=== PATIENT | male | born 1990 | race Caucasian/White ===

== ENCOUNTER 2022-01-12 16:32 | Outpatient (REF) | payer OTHER, SELFPAY ==
--- NOTE | ~2022-01-12 | XR_ITS ---
EXAMINATION: XR HAND, RIGHT CLINICAL INFORMATION: Pain COMPARISON: None TECHNIQUE: PA, lateral, and oblique views of the right hand. FINDINGS: Bone alignment is normal. No fracture or dislocation is seen. Joint spaces are normal. There may be a small cyst in the third metacarpal head. Soft tissues are unremarkable. XR/XR hand RT min 3V IMPRESSION: Unremarkable exam.
== END 2022-01-12 16:33 | disposition home or self-care (01) ==
LOC: HO.HMGCX 16:32
PROVIDERS: Visit Provider Family Medicine
DX: M79.644 Pain in right finger(s) (principal)
CPT/HCPCS: 73130

== ENCOUNTER 2024-03-23 07:04 | Emergency (ER) | payer BC, SELFPAY ==
--- NOTE | ~2024-03-23 | CT_ITS ---
CT HEAD CTA HEAD AND NECK HISTORY: right sided neck and head pain TECHNIQUE: Serial axial images were obtained on a multidetector CT through the head without the use of intravenous contrast, as per the standard departmental protocol. Multiplanar 2D MPR reformatted images were then obtained. CTA of the head and neck was performed after the administration of intravenous contrast according to the departmental protocol. MIP 3D angiographic rendering was then performed at the scanner. Evaluation for stenosis of the carotid arteries was made based on NASCET criteria, with evaluation of any areas of focal narrowing relative to the distal vessel (using minimal luminal diameter). Measurement of the distal internal carotid artery diameter was used as the denominator for stenosis measurement. Contrast was administered given the patient's clinical history. All CT exams at this location are performed using dose optimization techniques as appropriate to a performed exam including at least one of the following: * Automated exposure control * Adjustment of the mA and/or kV according to patient size (this includes techniques or standardized protocols for targeted exams where dose is matched to indication / reason for exam; i/e/ extremities or head) * Use of iterative reconstructive technique DLP: 2726 mGy-cm COMPARISON: None FINDINGS: CT Head: The ventricles, sulci and cisterns are age-appropriate. There is no mass-effect, midline shift, or space-occupying lesion. There is no acute intracranial hemorrhage or extra-axial fluid collection. There is no acute territorial infarct. The visualized paranasal sinuses are clear. The mastoid air cells are clear. The orbits and soft tissues are unremarkable. There is no displaced calvarial fracture. CTA Head: The intracranial internal carotid arteries are normal in configuration. The anterior and middle cerebral arteries are patent with normal contrast enhancement and branching pattern. There is a normal anterior communicating artery complex. The vertebral and basilar arteries demonstrate normal enhancement without stenosis or occlusion. The posterior cerebral arteries have a normal caliber and branching pattern. The posterior communicating arteries are visualized. There is no evidence of stenosis, occlusion, aneurysm or arteriovenous malformation. CTA Neck: The visualized aortic arch and origins of the major vessels are unremarkable. The right common, internal and external carotid arteries are normal in appearance. There is no evidence of a significant stenosis by NASCET criteria or a dissection. The left common, internal and external carotid arteries are normal in appearance. There is no evidence of a significant stenosis by NASCET criteria or a dissection. The cervical portions of the vertebral arteries demonstrate normal enhancement. There is no evidence of a significant stenosis or a dissection. The visualized soft tissues are unremarkable. The visualized lung is unremarkable. The visualized osseous structures are unremarkable. CT/CT angio head neck IMPRESSION: 1. Normal appearance of the vasculature of the head and neck, without significant stenosis (by NASCET criteria), dissection, or aneurysm. 2. Unremarkable non-contrast head CT. No acute territorial infarct, space-occupying lesion, or intracranial hemorrhage. Electronically signed by: Vero Abreu MD 03/23/2024 03:22 PM [facility]
[2024-03-23 07:07] VITALS: BP 146/81; PULSE 65; RESP 18; TEMP 36.8; O2SAT 98; BMI 36.6
--- NOTE | 2024-03-23 09:30 | ED_ITS ---
HPI - General Adult General Chief complaint: General Medical Stated complaint: Head Pain No Injury Time Seen by Provider: 03/23/24 08:58 Source: patient and RN notes reviewed Mode of arrival: ambulatory Limitations: no limitations History of Present Illness ED Provider: Gisela Rocha PA-C [facility] narrative: This is a 33-year-old male who presents emergency department with complaints of headache and right-sided neck pain for the last week. Patient states that he has had right-sided frontal neck pain, which radiates into his right temporal region. He states that the neck pain started 1st. He states that when he applies pressure to the right side of his neck he feels the pulsating sensation into his head. He states that he also does have a right-sided headache, which has been constant the past week. Denies any head trauma. He denies history of similar symptoms in the past. He states that his sister has been recently diagnosed with a brain tumor. He states that he has had no vision changes, vision loss, chest pain, shortness of breath, congestion, dental pain, sore throat, difficulty swallowing, abdominal pain, nausea, vomiting or diarrhea. He has been taking Aleve without relief. He reports no significant past medical history. He also reports no significant familial history other than the above mentioned of sister having a brain tumor diagnosed in her 30s. No other complaints or concerns at this time. MD complaint: Headache, neck pain Onset (ago): day(s) Radiation: non-radiation Relieving factors: none Exacerbating factors: none Associated symptoms: denies other symptoms Treatments prior to arrival: none Related Data Previous Rx's ?Medication ?Instructions ?Recorded ibuprofen 800 mg tablet 800 mg PO Q8H PRN pain 14 days #42 01/12/22 tabs Allergies Allergy/AdvReac Type Severity Reaction Status Date / Time nickel [Nickel] Allergy Unknown RASH/SWELLI Verified 03/23/24 07:07 NG Review of Systems 2 Review of Systems: Yes all other systems are reviewed and are negative Constitutional: Constitutional: Reports as per [facility] Social History Social History Advance Directives: No Advance Directives Information Provided: Yes Do you have a plan to hurt others: No Plan Physical Exam ED Vital Signs: Vital Signs - 24 hr 03/23/24 07:07 03/23/24 16:28 Temperature 98.2 F 97.1 F Pulse Rate 65 60 Respiratory Rate 18 18 Blood Pressure 146/81 H 116/78 Pulse Oximetry 98 97 Oxygen Delivery Method Room Air Room Air BMI result Body Mass Index 36.6 Const General: cooperative, comfortable and no acute distress Orientation/consciousness: patient oriented x3 Limitations: no limitations HENMT Other: Right-sided anterior lymphadenopathy noted, he does have tenderness to palpation along the right lateral carotid, which patient reports pain radiating up into head with pressure Head: Yes normal to inspection, Yes normocephalic and Yes atraumatic Ears: hearing grossly normal bilaterally General nose exam: Normal external nose present Face and sinus: Yes normal facial exam Mouth: Normal oral and palatal mucosa present, oropharynx normal and moist mucous membranes Throat: Yes posterior oropharynx normal Eyes General: appearance normal, both eyes and all related structures Eyelids: Yes eyelids normal Conjunctivae: conjunctivae normal Sclerae: sclerae normal Pupils: Equal, round and reactive pupils present EOM: EOMs intact bilaterally Neck Neck: Yes normal visual inspection, Yes full ROM and Yes no lymphadenopathy Lymphatic: no lymphadenopathy noted Chest Chest palpation & inspection: normal inspection of the chest Resp Effort & Inspection: normal respiratory effort and able to speak in complete sentences Auscultation: clear to auscultation bilaterally, no crackles, no rales, no rhonchi and no wheezes Cardio Rate: regular rate Rhythm: regular rhythm Heart sounds: S1 normal heart sound present and S2 normal heart sound present GI Inspection: Yes normal to inspection Skin General skin exam: no rashes or lesions noted Trauma: no lacerations or abrasions Wounds: no wounds Neuro General: patient oriented x3 and moves all extremities Cranial nerves: Yes CN's II-XII intact bilaterally and Yes Equal, round and reactive pupils present Cognition (Neuro): normal cognition Gait exam (Neuro): Normal gait present Motor exam (neuro): 5/5 motor strength present throughout Extrem General: Yes normal to inspection Right upper extremity: normal to inspection Left upper extremity: normal to inspection Right lower extremity: normal to inspection Left lower extremity: normal to inspection Course Reevaluation(s) Reevaluation #1: CT scan returns, revealing no acute findings. Discussed findings with patient. Unclear what is causing him to have the symptoms however his workup was reassuring. Discussed strict return precautions. Patient stable for discharge. Medications Administered Discontinued Medications Generic Name Dose Route Start Last Admin Trade Name Freq PRN Reason Stop Dose Admin Iohexol 100 ml 03/23/24 10:31 03/23/24 10:31 Iohexol 350 Mg/Ml 100 Ml Infus..Btl IV 03/23/24 10:32 70 ml ONCE ONE Administration Medical Decision Making Medical Decision Making [facility] Narrative: This is a 33-year-old male, with no known medical problems, who presents emergency department with complaints of neck pain, and headache x 1 week. Patient reports that the pain occurs when he presses onto his right carotid, and radiates up into his right temporal region. His sister has a history of a brain tumor, that was diagnosed in her 30s. No other past personal or familial medical history. He was neurologically intact. No focal deficits on examination. Given pain to right carotid, that radiates up into the right side of his head, will obtain CTA rule out claudication/obstruction, dissection. Other differential diagnosis considerations including viral syndrome, migraine headache, atypical migraine. Differential Diagnosis Differential Diagnoses: The differential diagnosis associated with the presentation includes See above Admission/Observation Consideration of admission/observation: Escalation of care including admission/observation considered Lab Data [facility] Lab Attestation statement: I reviewed the patient's lab results. 03/23/24 09:48 03/23/24 09:48 Labs: Lab Results 03/23/24 03/23/24 Range/Units 09:45 09:48 WBC 8.6 (4.8-10.8) X10*3/uL RBC 4.81 (4.60-5.80) X10*6/uL Hgb 14.4 (14.0-18.0) g/dl Hct 42.7 (42.0-52.0) % MCV 88.8 (80.0-98.0) fL MCH 29.9 (27.0-33.0) pg MCHC 33.7 (31.0-36.0) g/dl RDW 12.6 (11.0-16.0) % Plt Count 185 (160-400) X10*3/uL MPV 10.0 (9.4-12.4) fL Immature Gran % (Auto) 0.8 H (0.0-0.4) % Neut % (Auto) 54.4 (45-73) % Lymph % (Auto) 34.6 (20-40) % Cass % (Auto) 7.4 (2-11) % Eos % (Auto) 2.0 (0-4) % Baso % (Auto) 0.8 (0-2) % Lymph # (Auto) 3.0 (1.2-4.9) X10*3/uL Cass # (Auto) 0.6 (0.1-1.2) X10*3/uL Eos # (Auto) 0.2 (0.0-0.4) X10*3/uL Baso # (Auto) 0.1 (0.0-0.2) X10*3/uL Abs Immat Gran (auto) 0.07 H (0.00-0.03) X10*3/uL Absolute Neuts (auto) 4.7 (2.0-8.3) x10*3/uL Absolute Nucleated RBC 0.000 (0.0-0.012) X10*3/uL Nucleated RBC % (auto) 0.0 (0.0-0.2) /100WBC Sodium 138 (135-145) mmol/L Potassium 3.8 (3.3-5.1) mmol/L Chloride 103 (96-108) mmol/L Carbon Dioxide 29 (22-29) mmol/L Anion Gap 10 L (12-20) BUN 17 H (9-16) mg/dL Creatinine 1.11 (0.5-1.4) mg/dL Estim Creat Clear Calc 150.2 Estimated GFR > 60 Random Glucose 116 H (60-115) mg/dL Calcium 9.5 (8.4-10.2) mg/dL Total Bilirubin 0.4 (0.0-1.0) mg/dL Direct Bilirubin 0.1 (0.0-0.5) mg/dL AST 36 (5-37) U/L ALT 58 H (0-40) U/L Alkaline Phosphatase 66 (39-117) U/L Total Protein 7.6 (6.5-8.0) g/dL Albumin 4.3 (3.5-5.0) g/dL Influenza Type A (PCR) NEGATIVE (Negative) Influenza Type B (PCR) NEGATIVE (Negative) RSV RNA Qual (PCR) NEGATIVE (Negative) SARS-CoV-2 RNA (RT-PCR) NEGATIVE (Negative) S. pyogenes GrpA CHLOE Negative (Negative) Radiology Impression Discussion of test interpretation with radiology: I have reviewed the radiologist's reading. External Record Review External record reviewed: Inpatient record, Office record, Outpatient record, Prior outpatient labs, Prior outpatient radiology, Primary care record and Outside ED record Discharge Plan Discharge Clinical Impression: Headache Patient Disposition: Home, Self-Care Instructions: Acute Headache (DC) Additional Instructions: You were seen in the emergency department due to a headache. Your workup today was reassuring. Your CT scan was normal. It is unclear what is causing you to have the symptoms however your workup today was reassuring. Please drink plenty of fluids get plenty of rest. If any new or worsening symptoms occur including but not limited to worsening pain, dizziness, changes in vision, weakness, please seek emergent care. Prescriptions: No Action ibuprofen 800 mg tablet 800 mg PO Q8H PRN (Reason: pain) 14 Days Qty: 42 0RF Stand Alone Forms: Work/School Release Interventions: ED Discharge Assessment Last Done: 03/23/24 16:28 Discharge Date/Time: 03/23/24 16:29 Print Language: Bengali
[2024-03-23 09:53] LABS: MANUAL DIFF FLAG NO
[2024-03-23 09:57] LABS: Basophils Absolute Auto 0.1 X10*3/uL (0.0-0.2); Basophils Percent Auto 0.8 % (0-2); Eosinophils Absolute Auto 0.2 X10*3/uL (0.0-0.4); Hematocrit 42.7 % (42.0-52.0); Hemoglobin 14.4 g/dl (14.0-18.0); Imm Gran Abs Auto 0.07 X10*3/uL (0.00-0.03); Imm Gran Pct Auto 0.8 % (0.0-0.4); Lymphocytes Percent Auto 34.6 % (20-40); Mean Corpuscular HGB Conc 33.7 g/dl (31.0-36.0); Mean Corpuscular Hemoglobin 29.9 pg (27.0-33.0); Mean Corpuscular Volume 88.8 fL (80.0-98.0); Monocytes Absolute Auto 0.6 X10*3/uL (0.1-1.2); Monocytes Percent Auto 7.4 % (2-11); Neutrophils Absolute Auto 4.7 x10*3/uL (2.0-8.3); Neutrophils Percent Auto 54.4 % (45-73); Platelet Count 185 X10*3/uL (160-400); Red Blood Count 4.81 X10*6/uL (4.60-5.80); Red Cell Distribution Width 12.6 % (11.0-16.0); White Blood Count 8.6 X10*3/uL (4.8-10.8)
[2024-03-23 10:01] LABS: IDNOW Serial# 08D9AD1C; Strep A Nucleic Acid Negative (Negative)
[2024-03-23 10:14] LABS: Alanine Aminotransferase 58 U/L (0-40); Albumin Level 4.3 g/dL (3.5-5.0); Alkaline Phosphatase 66 U/L (39-117); Anion Gap 10 (12-20); Aspartate Amino Transferase 36 U/L (5-37); Bilirubin Direct 0.1 mg/dL (0.0-0.5); Bilirubin Total 0.4 mg/dL (0.0-1.0); Blood Urea Nitrogen 17 mg/dL (9-16); Calcium 9.5 mg/dL (8.4-10.2); Carbon Dioxide 29 mmol/L (22-29); Chloride 103 mmol/L (96-108); Creatinine Clr Calc Pharmacy 150.2; Estimated Glomerular Filt Rate > 60; Glucose Random 116 mg/dL (60-115); Potassium 3.8 mmol/L (3.3-5.1); Sodium 138 mmol/L (135-145); Total Protein 7.6 g/dL (6.5-8.0)
[2024-03-23] MEDS: iohexoL 350 MG/ML 100 ML INFUS..BTL IV (10:31)
[2024-03-23 10:33] LABS: Influenza A PCR NEGATIVE (Negative); Influenza B PCR NEGATIVE (Negative); Resp Syncy Virus RNA Qual PCR NEGATIVE (Negative); SARS COV2 PCR INHOUSE NEGATIVE (Negative)
[2024-03-23 16:28] VITALS: BP 116/78; PULSE 60; RESP 18; TEMP 36.2; O2SAT 97
== END 2024-03-23 16:29 | disposition home or self-care (01) ==
PROVIDERS: Physician Assistant Medical; Emergency Provider Emergency Medicine
DX: R51.9 Headache, unspecified (principal); M54.2 Cervicalgia; Z03.818 Encounter for observation for suspected exposure to other biological agents ruled out
CPT/HCPCS: 0241U; 70496; 70498; 80048; 80076; 85025; 87651; 99282; 99284; Q9967